=== PATIENT | male | born 1970 | race Caucasian/White ===

== ENCOUNTER 2025-06-01 21:59 | Inpatient (IN) | payer MEDICARE, MEDICAID ==
[~2025-06-01] VITALS: Ht 190.5 cm; Wt 109.8 kg
[2025-06-01 22:48] LABS: PLATELET COUNT (AUTO) 125 K/uL (150-450); RED BLOOD CELL COUNT(AUTO) 4.17 MIL/uL (4.50-5.90); RED CELL DISTRIBUTION WIDTH 14.6 % (11.5-14.5); WHITE BLOOD COUNT (AUTO) 7.0 K/uL (4.5-11.0)
[2025-06-01 22:57] LABS: CALCIUM, TOTAL 9.1 mg/dL (8.8-10.5); CREATININE 1.29 mg/dL (0.60-1.30); GLOMERULAR FILTR. RATE CALC 58.0 mL/min (>60); GLUCOSE,RANDOM 104.0 mg/dL (70-110); SODIUM SERUM 144.0 mmol/L (136-145); UREA NITROGEN, BLOOD 21.0 mg/dL (7-18)
[2025-06-02 00:45] LABS: COVID AG,FIA SOURCE NASAL SWAB
[2025-06-02 01:01] LABS: SARS-COV2 (COVID) ANTIGEN,FIA Negative (Negative)
[2025-06-02] MEDS ORDERED: CLON0.2T PO (01:48)
[2025-06-02] MEDS ORDERED: INSLAN SQ (01:48)
[2025-06-02] MEDS ORDERED: BUSP15 PO (01:48)
[2025-06-02] MEDS ORDERED: ALLO-45 PO (01:48)
[2025-06-02] MEDS ORDERED: BENZ2TAB84 PO (01:48)
[2025-06-02] MEDS ORDERED: GABA-1201 PO (01:48)
[2025-06-02] MEDS ORDERED: FERR325T23 PO (01:48)
[2025-06-02] MEDS ORDERED: MELA5TAB40 PO (01:48)
[2025-06-02] MEDS ORDERED: LAMO-24 PO (01:48)
[2025-06-02] MEDS: MELATONIN 5 MG TABLET PO ONE (01:57)
[2025-06-02 03:45] VITALS: BP 120/95; PULSE 88; RESP 18; TEMP 97.8; O2SAT 99
[2025-06-02 09:08] VITALS: BP 112/69; PULSE 94; RESP 17; TEMP 98.2; O2SAT 96
[2025-06-02] MEDS ORDERED: LOPERAMIDE HCL 2 MG CAPSULE PO PRN (11:30)
[2025-06-02] MEDS ORDERED: PROMETHAZINE HCL 25 MG TABLET PO PRN (11:30)
[2025-06-02] MEDS ORDERED: MAGNESIUM HYDROXIDE SUSPENSION 30 ML UDCUP PO PRN (11:30)
[2025-06-02] MEDS ORDERED: MAG HYDROX/ALUMINUM HYD/SIMETH ES 30 ML SUSPENSION UDCUP PO PRN (11:30)
[2025-06-02] MEDS ORDERED: ACETAMINOPHEN 325 MG TABLET PO PRN (11:30)
[2025-06-02] MEDS ORDERED: TUBERCULIN, PURIFIED PROTEIN DERIVATIVE 5 TU/0.1 ML SYRINGE ID ONE (11:30)
[2025-06-02] MEDS ORDERED: GuaiFENesin/D-METHORPHAN [SUGAR-FREE] 200-20MG/10 ML SYRUP UDCUP PO PRN (11:30)
[2025-06-02] MEDS ORDERED: DEXTROSE 50%-WATER 25 GM/50 ML SYRINGE IVP PRN (11:45)
[2025-06-02 12:00] LABS: GLUCOMETER DEV NAME(LOC) 3E.C; GLUCOSE,POINT OF CARE 108 MG/DL (70-110)
[2025-06-02] MEDS: MULTIVITAMINS WITH IRON TABLET PO SCH (12:20)
[2025-06-02 14:35] LABS: CHOL/HDL RATIO 6.3 (4.2-7.3); LDL CHOL (CALC.) 75.0 mg/dL (0-130)
[2025-06-02] MEDS: THIAMINE 100 MG TABLET PO SCH (16:29)
[2025-06-02 17:35] LABS: GLUCOMETER DEV NAME(LOC) 3E.C; GLUCOSE,POINT OF CARE 119 MG/DL (70-110)
[2025-06-02 20:26] VITALS: BP 150/101; PULSE 115; RESP 18; TEMP 97.5; O2SAT 98
[2025-06-02 20:40] LABS: GLUCOMETER DEV NAME(LOC) 3E.C; GLUCOSE,POINT OF CARE 127 MG/DL (70-110)
[2025-06-02] MEDS: INSULIN LISPRO 100 UNITS/ML SQ PRN (21:39)
[2025-06-02] MEDS: DIVALPROEX SODIUM 500 MG ER TABLET PO SCH (22:09)
[2025-06-02] MEDS: OLANZapine 5 MG RAPDIS TABLET PO SCH (22:10)
[2025-06-02] MEDS: ZOLPIDEM TARTRATE 10 MG TABLET PO PRN (23:04)
[2025-06-03 06:36] LABS: GLUCOMETER DEV NAME(LOC) 3E.C; GLUCOSE,POINT OF CARE 96 MG/DL (70-110)
[2025-06-03 07:55] LABS: PLATELET COUNT (AUTO) 128 K/uL (150-450); RED BLOOD CELL COUNT(AUTO) 4.09 MIL/uL (4.50-5.90); RED CELL DISTRIBUTION WIDTH 14.3 % (11.5-14.5); WHITE BLOOD COUNT (AUTO) 3.6 K/uL (4.5-11.0)
[2025-06-03 08:23] LABS: ASPARTATE AMINOTRANSFERASE 22 U/L (15-37); CALCIUM, TOTAL 8.8 mg/dL (8.8-10.5); CREATININE 1.14 mg/dL (0.60-1.30); GLOMERULAR FILTR. RATE CALC > 60 mL/min (>60); GLUCOSE,RANDOM 117 mg/dL (70-110); SODIUM SERUM 142 mmol/L (136-145); TOTAL PROTEIN, SERUM 6.2 g/dL (6.4-8.2); UREA NITROGEN, BLOOD 23 mg/dL (7-18)
[2025-06-03] MEDS ORDERED: MULTIVITAMINS WITH MINERALS, THERAPEUTIC TABLET PO SCH (09:00)
[2025-06-03 09:09] VITALS: BP 109/71; PULSE 90; RESP 16; TEMP 97.8; O2SAT 98
[2025-06-03] MEDS: FOLIC ACID 1 MG TABLET PO SCH (09:24)
[2025-06-03] MEDS: OLANZapine 5 MG RAPDIS TABLET PO PRN (09:25)
[2025-06-03 11:26] LABS: GLUCOMETER DEV NAME(LOC) 3E.C; GLUCOSE,POINT OF CARE 106 MG/DL (70-110)
[2025-06-03] MEDS: PALIPERIDONE PALMITATE 234 MG/1.5 ML SYRINGE IM ONE (16:15)
[2025-06-03 17:00] LABS: GLUCOMETER DEV NAME(LOC) 3E.C; GLUCOSE,POINT OF CARE 112 MG/DL (70-110)
[2025-06-03 20:26] LABS: GLUCOMETER DEV NAME(LOC) 3E.C; GLUCOSE,POINT OF CARE 106 MG/DL (70-110)
[2025-06-03 23:23] VITALS: BP 114/76; PULSE 94; RESP 18; TEMP 97.9; O2SAT 98
[2025-06-04 06:26] LABS: GLUCOMETER DEV NAME(LOC) 3E.C; GLUCOSE,POINT OF CARE 95 MG/DL (70-110)
[2025-06-04 06:40] LABS: GLUCOMETER DEV NAME(LOC) 3E.C; GLUCOSE,POINT OF CARE 114 MG/DL (70-110)
[2025-06-04 08:22] VITALS: BP 125/78; PULSE 74; RESP 18; TEMP 97.7; O2SAT 98
[2025-06-04 12:11] LABS: GLUCOMETER DEV NAME(LOC) 3E.C; GLUCOSE,POINT OF CARE 129 MG/DL (70-110)
[2025-06-04 17:26] LABS: GLUCOMETER DEV NAME(LOC) 3E.C; GLUCOSE,POINT OF CARE 179 MG/DL (70-110)
[2025-06-04 20:07] VITALS: BP 142/95; PULSE 112; RESP 18; TEMP 98.6; O2SAT 98
[2025-06-04 20:45] LABS: GLUCOMETER DEV NAME(LOC) 3E.C; GLUCOSE,POINT OF CARE 150 MG/DL (70-110)
[2025-06-05 07:26] LABS: GLUCOMETER DEV NAME(LOC) 3E.C; GLUCOSE,POINT OF CARE 96 MG/DL (70-110)
[2025-06-05 08:30] VITALS: BP 121/95; PULSE 101; RESP 18; TEMP 97.7; O2SAT 96
[2025-06-05 11:36] LABS: GLUCOMETER DEV NAME(LOC) 3E.C; GLUCOSE,POINT OF CARE 131 MG/DL (70-110)
[2025-06-05 15:21] LABS: APPEARANCE,URINE CLEAR (CLEAR); GLUCOSE, URINE (UA) NEGATIVE (NEGATIVE); LEUKOCYTE ESTERASE ,URINE NEGATIVE (NEGATIVE); NITRATE,URINE NEGATIVE (NEGATIVE); OCCULT BLOOD,URINE NEGATIVE (NEGATIVE); PH,URINE DRUG SCREEN 5.0 (5.0-8.0); SPECIFIC GRAVITIY, URINE 1.006 (1.003-1.030)
[2025-06-05 15:28] LABS: AMPHET/METH SCREEN,URINE NEGATIVE (NEGATIVE); BARBITURATE SCREEN, URINE NEGATIVE (NEGATIVE); CANNABINOID SCREEN,URINE NEGATIVE (NEGATIVE); COCAINE SCREEN,URINE NEGATIVE (NEGATIVE); METHADONE SCREEN, URINE NEGATIVE (NEGATIVE)
[2025-06-05 15:31] LABS: ALCOHOL, URINE DRUG SCREEN NEGATIVE (NEGATIVE)
[2025-06-05 17:11] LABS: GLUCOMETER DEV NAME(LOC) 3E.C; GLUCOSE,POINT OF CARE 115 MG/DL (70-110)
[2025-06-05 20:34] VITALS: BP 139/98; PULSE 111; RESP 18; TEMP 97.9; O2SAT 98
[2025-06-05 21:15] LABS: GLUCOMETER DEV NAME(LOC) 3E.C; GLUCOSE,POINT OF CARE 149 MG/DL (70-110)
[2025-06-06 06:51] LABS: GLUCOMETER DEV NAME(LOC) 3E.C; GLUCOSE,POINT OF CARE 95 MG/DL (70-110)
[2025-06-06 08:41] VITALS: BP 101/75; PULSE 94; RESP 17; TEMP 97.8; O2SAT 98
[2025-06-06 11:51] LABS: GLUCOMETER DEV NAME(LOC) 3E.C; GLUCOSE,POINT OF CARE 104 MG/DL (70-110)
[2025-06-06 17:16] LABS: GLUCOMETER DEV NAME(LOC) 3E.C; GLUCOSE,POINT OF CARE 129 MG/DL (70-110)
[2025-06-06 21:06] LABS: GLUCOMETER DEV NAME(LOC) 3E.C; GLUCOSE,POINT OF CARE 152 MG/DL (70-110)
[2025-06-06 22:21] VITALS: BP 148/108; PULSE 113; RESP 18; TEMP 97.9; O2SAT 97
[2025-06-07 06:51] LABS: GLUCOMETER DEV NAME(LOC) 3E.C; GLUCOSE,POINT OF CARE 118 MG/DL (70-110)
[2025-06-07 10:34] VITALS: BP 109/88; PULSE 94; RESP 16; TEMP 98; O2SAT 96
[2025-06-07 11:56] LABS: GLUCOMETER DEV NAME(LOC) 3E.C; GLUCOSE,POINT OF CARE 105 MG/DL (70-110)
[2025-06-07] MEDS: PALIPERIDONE PALMITATE 156 MG/ML SYRINGE IM ONE (12:10)
[2025-06-07] MEDS ORDERED: OLAN10TA74 PO (14:25)
[2025-06-07] MEDS ORDERED: DIVA-153 PO (14:25)
[2025-06-07 17:05] LABS: GLUCOMETER DEV NAME(LOC) 3E.C; GLUCOSE,POINT OF CARE 113 MG/DL (70-110)
[2025-06-07 21:16] LABS: GLUCOMETER DEV NAME(LOC) 3E.C; GLUCOSE,POINT OF CARE 97 MG/DL (70-110)
[2025-06-07 22:59] VITALS: BP 139/97; PULSE 98; RESP 19; TEMP 98.6; O2SAT 100
[2025-06-08 06:21] LABS: GLUCOMETER DEV NAME(LOC) 3E.C; GLUCOSE,POINT OF CARE 130 MG/DL (70-110)
[2025-06-08 12:11] LABS: GLUCOMETER DEV NAME(LOC) 3E.C; GLUCOSE,POINT OF CARE 102 MG/DL (70-110)
[2025-06-08 14:16] VITALS: RESP 16
== END 2025-06-08 16:38 | DRG 885 ==
LOC: EMS 22:00 → EDH 06-02 03:32 → EDLOC 06-02 03:32 → UNDOADMIN 06-02 03:32 → 3EC 06-02 03:32
PROVIDERS: ADMIT Psychiatry & Neurology Psychiatry; ATTEND Psychiatry & Neurology Psychiatry
PROC: GZ56ZZZ Individual Psychotherapy, Supportive (ICD-10-PCS; principal; 2025-06-03)
DX: F25.0 Schizoaffective disorder, bipolar type (principal); F70 Mild intellectual disabilities; R45.851 Suicidal ideations; E11.9 Type 2 diabetes mellitus without complications; F84.0 Autistic disorder; F41.9 Anxiety disorder, unspecified; F90.9 Attention-deficit hyperactivity disorder, unspecified type; Z60.8 Other problems related to social environment; M10.9 Gout, unspecified; Z63.9 Problem related to primary support group, unspecified; Z59.9 Problem related to housing and economic circumstances, unspecified; Z65.3 Problems related to other legal circumstances; Z78.1 Physical restraint status; Z79.899 Other long term (current) drug therapy; Z85.72 Personal history of non-Hodgkin lymphomas
CPT/HCPCS: 80048; 80053; 80061; 80164; 80307; 81003; 82962; 83036; 84436; 84439; 84443; 84550; 85025; 86592; 87081; 99285; G0480

== ENCOUNTER 2025-06-17 16:58 | Emergency (ER) | payer MEDICARE, MEDICAID ==
[~2025-06-17] VITALS: Ht 188 cm; Wt 106.1 kg
[~2025-06-17 16:58] MED LIST: DIVA-153 PO; OLAN10TA74 PO
[2025-06-17 17:17] VITALS: TEMP 98.6
[2025-06-17 17:45] LABS: COVID AG,FIA SOURCE NASAL SWAB
[2025-06-17 17:51] LABS: PLATELET COUNT (AUTO) 127 K/uL (150-450); RED BLOOD CELL COUNT(AUTO) 4.03 MIL/uL (4.50-5.90); RED CELL DISTRIBUTION WIDTH 13.8 % (11.5-14.5); WHITE BLOOD COUNT (AUTO) 7.9 K/uL (4.5-11.0)
[2025-06-17 18:01] LABS: CALCIUM, TOTAL 8.7 mg/dL (8.8-10.5); CREATININE 1.15 mg/dL (0.60-1.30); GLOMERULAR FILTR. RATE CALC > 60 mL/min (>60); GLUCOSE,RANDOM 139 mg/dL (70-110); SODIUM SERUM 141 mmol/L (136-145); UREA NITROGEN, BLOOD 19 mg/dL (7-18)
[2025-06-17] MEDS: ACETAMINOPHEN 325 MG TABLET PO ONE (18:06)
[2025-06-17 18:08] LABS: SARS-COV2 (COVID) ANTIGEN,FIA Negative (Negative)
[2025-06-17 21:32] VITALS: BP 134/94; PULSE 96; RESP 18; O2SAT 97
== END 2025-06-17 21:37 | disposition home or self-care (01) ==
LOC: EMS 17:18
DX: S06.2XAA Diffuse traumatic brain injury with loss of consciousness status unknown, initial encounter (principal); E11.9 Type 2 diabetes mellitus without complications; F25.1 Schizoaffective disorder, depressive type; F31.9 Bipolar disorder, unspecified; M10.9 Gout, unspecified; Z20.822 Contact with and (suspected) exposure to COVID-19; Z79.899 Other long term (current) drug therapy; W22.8XXA Striking against or struck by other objects, initial encounter; Y93.89 Activity, other specified; Y92.89 Other specified places as the place of occurrence of the external cause; Y99.8 Other external cause status
CPT/HCPCS: 99284; 87426; 80048; 85025; G0480